=== PATIENT | male | born 2000 | race African-American/Black ===

== ENCOUNTER 2022-02-13 09:40 | Emergency (ER) | payer BC, OTHER ==
[~2022-02-13] VITALS: Ht 193 cm; Wt 82.0 kg
[2022-02-13 09:48] VITALS: BP 128/53
[2022-02-13] MEDS ORDERED: ONDANSETRON 4MG ODT PO STA (10:17)
[2022-02-13] MEDS ORDERED: TOPUD MT (12:26)
[2022-02-13 13:35] LABS: HEMATOCRIT. 44.2 % (42.0-52.0); HEMOGLOBIN. 14.7 g/dL (14.0-18.0); MEAN CORPUSCULAR VOLUME 84.1 fL (80.0-94.0); MEAN PLATELET VOLUME 8.7 fl (7.4-10.4); PLATELET 224 x1000/uL (130-400); RED BLOOD CELL COUNT 5.25 mill/uL (4.7-6.1)
[2022-02-13 13:45] LABS: CHLORIDE 109 mEq/L (98-107)
[2022-02-13 13:53] LABS: PLATELET ESTIMATE NORMAL
== END 2022-02-13 12:37 | disposition home or self-care (01) ==
LOC: ER 09:40
DX: S00.12XA Contusion of left eyelid and periocular area, initial encounter (principal); R07.81 Pleurodynia; M79.18 Myalgia, other site; S70.02XA Contusion of left hip, initial encounter; S70.01XA Contusion of right hip, initial encounter; R11.0 Nausea; V43.52XA Car driver injured in collision with other type car in traffic accident, initial encounter; W22.11XA Striking against or struck by driver side automobile airbag, initial encounter; Y93.89 Activity, other specified; Y92.488 Other paved roadways as the place of occurrence of the external cause; T14.8XXA Other injury of unspecified body region, initial encounter
CPT/HCPCS: 36415; 70450; 71111; 72125; 80053; 85025; 99285; Q0162